=== PATIENT | female | born 1960 | race Caucasian/White ===

== ENCOUNTER 2019-09-19 20:06 | Inpatient (IN) | payer OTHER ==
[~2019-09-19] VITALS: Ht 170.2 cm; Wt 105.7 kg
[2019-09-19 20:26] VITALS: BP 140/79
--- NOTE | 2019-09-19 20:39 | NUR ---
PT TAKEN TO ER BED 05
--- NOTE | 2019-09-19 20:48 | NUR ---
58 Y/O F PRESENTS TO ER C/O BILATERAL CELLULITIS TO LOWER EXTREMITIES X 5 MONTHS. PAIN LEVEL 6/10, SOMETIMES SHARP, SOMETIMES DULL. PT HAS 1 SMALL ULCER ON BACK OF LEFT CALF AND SEVERAL OPEN WOUNDS ON RIGHT LOWER EXTREMITY. NO BLEEDING NOTED. PER PT SHE WAS NONCOMPLIANT WITH DIABETIC MEDICATION FOR 5 WEEKS. PER PT SHE WAS ON LANTUS AND WAS SWITCHED TO THE GENERIC VERSION AND WANTED TO GO BACK TO TAKING LANUTS. PT HAS BEEN COMPLIANT WITH MEDICATION FOR THE LAST MONTH. HOB ELEVATED, BED IN LOWEST POSITION, BED RAIL UP X1. WAITING FOR ERMD TO EVALUATE PT. ALLERGIES: PENICILLINS, SULFA MED HX: DM, HTN, HIGH CHOLESTEROL, HYPOTHRYOIDISM, SLEEP APNEA, DEPRESSION, AND MIGRAINES
--- NOTE | 2019-09-19 21:00 | NUR ---
PT LABS AND BLOOD CULTURES COLLECTED AND GIVEN TO PHLEB
--- NOTE | 2019-09-19 21:01 | NUR ---
DR. HONG EVALUATING PT AT BEDSIDE
--- NOTE | 2019-09-19 21:25 | NUR ---
PT AMBULATING TO RESTROOM TO PROVIDE URINE
[2019-09-19 21:36] LABS: BASOPHILS # (AUTO) 0.1 K/uL (0.00-0.22); BASOPHILS % (AUTO) 1.5 % (0.0-2.0); EOSINOPHILS # (AUTO) 0.2 K/uL (0-0.4); HEMATOCRIT 37.6 % (36-48); HEMOGLOBIN 12.4 g/dL (12.0-16.0); LYMPHOCYTES # (AUTO) 2.6 K/uL (2.5-16.5); LYMPHOCYTES % (AUTO) 32.5 % (20.5-51.1); MEAN CORPUSCULAR HEMOGLOBIN 30 pg (27-31); MEAN CORPUSCULAR HGB CONC 33 g/dL (33-37); MEAN CORPUSCULAR VOLUME 89.8 fL (80-94); MONOCYTES # (AUTO) 0.6 K/uL (0.8-1.0); MONOCYTES % (AUTO) 7.2 % (1.7-9.3); NEUTROPHILS # (AUTO) 4.5 K/uL (1.8-7.7); NEUTROPHILS % (AUTO) 56.8 % (42.2-75.2); PLATELET COUNT (AUTO) 310 K/uL (140-450); RED BLOOD CELL COUNT(AUTO) 4.19 MIL/uL (4.20-5.40); RED CELL DISTRIBUTION WIDTH 13.4 % (11.6-13.7)
[2019-09-19 21:49] LABS: ANION GAP 13.6 (8-16); CARBON DIOXIDE 26.1 mmol/L (21-32); CREATININE 1.1 mg/dL (0.6-1.3); POTASSIUM 3.7 mmol/L (3.5-5.1)
[2019-09-19 21:54] LABS: ALBUMIN 3.5 g/dL (3.4-5.0); TOTAL BILIRUBIN 0.2 mg/dL (0.0-1.0)
[2019-09-19] MEDS ORDERED: NACL 0.9% 1,000 ML IV ONE (22:10)
[2019-09-19] MEDS ORDERED: LEVOFLOXACIN 750 MG/D5W PREMIX 150 ML IV ONE (22:10)
--- NOTE | 2019-09-19 22:16 | NUR ---
EKG PERFORMED AT BEDSIDE
[2019-09-19] MEDS ORDERED: CLON0.3T23 PO (22:32)
[2019-09-19] MEDS ORDERED: GABA300C PO (22:32)
[2019-09-19] MEDS ORDERED: SPIR50TA PO (22:32)
[2019-09-19] MEDS ORDERED: ASPI-1718 PO (22:32)
[2019-09-19] MEDS ORDERED: PRAV40TA1 PO (22:32)
[2019-09-19] MEDS ORDERED: LOSA50TA57 PO (22:32)
[2019-09-19] MEDS ORDERED: FURO-570 PO (22:32)
[2019-09-19] MEDS ORDERED: INSU100S22 SUBQ (22:32)
[2019-09-19] MEDS ORDERED: SYN.05 PO (22:32)
[2019-09-19] MEDS ORDERED: TOPI50TA PO (22:32)
[2019-09-19] MEDS ORDERED: CITA10TA11 PO (22:32)
[2019-09-19 22:43] LABS: APPEARANCE,URINE HAZY (CLEAR); BILIRUBIN,URINE NEGATIVE (NEGATIVE); BLOOD, URINE NEGATIVE (NEGATIVE); COLOR,URINE YELLOW (YELLOW); LEUKOCYTE ESTERASE ,URINE TRACE (NEGATIVE); NITRITE, URINE NEGATIVE (NEGATIVE); UGLUCOSE 1+ (NEGATIVE)
[2019-09-19 23:05] LABS: RBC,URINE 0-5 /HPF (0-5)
--- NOTE | 2019-09-19 23:10 | NUR ---
Patient will be admitted to care of DR. BAILEY. Admited to TELE. Will go to room 120B. Belongings list completed. Report to EDUARDO NOLASCO.
--- NOTE | 2019-09-19 23:10 | NUR ---
ADMITTED A 58 YEAR OLD FEMALE FROM HOME. ALERT AND ORIENTED X3. NO APPARENT DISTRESS NOTED. WITH 22G LEFT HAND PIV INFUSING WITH IVF AND IV ATB. INTRODUCED SELF AND UPDATED BOARD. NO APPARENT DISTRESS NOTED. BED ON LOW POSITION. WILL CONTINUE TO MONITOR.
--- NOTE | 2019-09-19 23:10 | NUR ---
TRANSFER OF CARE AND REPORT GIVEN TO EDUARDO NOLASCO
[2019-09-20] MEDS ORDERED: DEXTROSE 50% 50 ML SYR IVP PRN
[2019-09-20] MEDS ORDERED: ACETAMINOPHEN 325 MG TAB PO PRN
--- NOTE | 2019-09-20 01:05 | NUR ---
ROUNDS DONE. PATIENT AWAKE IN BED, WATCHING TV. NO APPARENT DISTRESS NOTED. WILL CONTINUE TO MONITOR.
[2019-09-20] MEDS: NACL 0.45% 1,000 ML IV SCH ×2 (02:45→15:24)
[2019-09-20] MEDS: HYDROcodone/APAP 5/325 MG 1 TAB TAB PO PRN ×2 (02:51→20:41)
--- NOTE | 2019-09-20 02:52 | NUR ---
CALLED [facility] STAY STITCHER MD (DR. BUSH) AND GOT ORDER FOR NORCO. GIVEN TO PATIENT FOR COMPLAINT OF LEG PAIN 05/19. WILL CONTINUE TO MONITOR.
[2019-09-20 04:00] VITALS: BP 97/52
--- NOTE | 2019-09-20 04:50 | NUR ---
ROUNDS DONE. PATIENT ASLEEP IN BED. WILL CONTINUE TO MONITOR.
[2019-09-20] MEDS: BLOOD GLUCOSE MONITORING 1 DEV DEV FS SCH ×4 (05:49→21:00)
--- NOTE | 2019-09-20 06:35 | NUR ---
ROUNDS DONE. PATIENT ASLEEP IN BED. NO APPARENT DISTRESS NOTED. WILL CONTINUE TO MONITOR.
--- NOTE | 2019-09-20 06:40 | NUR ---
RECEIVED PT ON REESE V60 ON CPAP 7 FIO2 28, ALARMS ARE ON AND AUDIBLE, PT IS IN SEMI ASLEEP WEARING F\F MASK SIZE MED. GEL UNDER MASK, BS DIMINISHED, CONT POX IN PLACE, O2 2L ON AT WALL, BIPAP PLUGGED INTO RED OUTLET,
--- NOTE | 2019-09-20 07:20 | NUR ---
RECEIVED PT FROM NIGHT NURSE. PT ASLEEP IN BED, AROUSABLE TO SPEECH. AAOX4. RESPIRATIONS EVEN AND UNLABORED ON CPAP FOR SLEEP APNEA. IV IN PLACE L HAND 22G PATENT AND ASYMPTOMATIC INFUSING PER ORDER. PT DENIES PAIN AND NO DISTRESS NOTED. CELLULITIS PRESENT ON BOTH LOWER EXTREMITIES. BED IN LOW POSITION. SAFETY MEASURES IN PLACE. CALL LIGHT WITHIN REACH. WILL CONTINUE TO MONITOR.
--- NOTE | 2019-09-20 07:30 | NUR ---
ENDORSED TO AM SHIFT NURSE IN STABLE CONDITION.
[2019-09-20 08:00] VITALS: BP 104/60
--- NOTE | 2019-09-20 08:30 | NUR ---
PATIENT HAS BEEN SCREENED AND CATEGORIZED MODERATE NUTRITION RISK. PATIENT WILL BE SEEN WITHIN 3-5 DAYS OF ADMISSION. 09/22/19 09/24/[address]
--- NOTE | 2019-09-20 09:34 | NUR ---
PTS CALLED, CALL TRANSFERED TO PT. DENIES PAIN AT THIS TIME. NO DISTRESS NOTED. WILL CONTINUE TO MONITOR.
[2019-09-20] MEDS ORDERED: VANCOMYCIN PER PHARMACY MC PRN (11:30)
--- NOTE | 2019-09-20 11:38 | NUR ---
BLOOD GLUCOSE MONITORED AT THIS TIME. PT DENIES PAIN. NO DISTRESS NOTED. BED IN LOW POSITION. CALL LIGHT WITHIN REACH. WILL CONTINUE TO MONITOR.
[2019-09-20 12:00] VITALS: BP 100/56
[2019-09-20] MEDS: MORPHINE SULFATE 2 MG/ML SYR IVP PRN ×2 (12:09→20:32)
[2019-09-20] MEDS: INSULIN LISPRO SLIDING SCALE 100 UNITS/ML VIAL SUBQ PRN ×2 (12:22→16:52)
[2019-09-20] MEDS ORDERED: VANCOMYCIN 1,000 MG in DEXTROSE 5% 250 ML IV SCH (13:00)
[2019-09-20] MEDS: diphenhydrAMINE 50 MG/ML VIAL IVP PRN ×2 (14:05→20:32)
[2019-09-20] MEDS: methylPREDNISolone SS 125 MG/2 ML VIAL IVP SCH ×2 (14:06→20:40)
--- NOTE | 2019-09-20 14:11 | NUR ---
MEDICATIONS ADMINISTERED PER ORDER. PT TOLERATED WELL. NO DISTRESS NOTED. WILL CONTINUE TO MONITOR.
--- NOTE | 2019-09-20 14:16 | NUR ---
[employer] Regrooving Machine Operator Note: Basic Screen: Yes High Risk DC Screen [facility]: SWATI Steve Relationship: FRIEND Pre-Admission Living Arrangements: Lives with Other Prior ADL Independent Current Home Health Name/Tel: N/A Current DME/02 Name/Tel: N/A Current Hospice Name/Tel: N/A Current Dialysis Name/Tel: N/A Healthcare Decision Maker: Patient Advance Directive Yes - REFUSED Physician Orders for Life Sustaining Treatment Form No Patient/Family Have Educational Needs No Information Taught: Advance Directive Person Taught: Patient Teaching Tools: Verbal Factors Affecting Learning: None Participation Level: Active Evaluation: Verbalizes Understanding Needs Additional Education: No Discipline: Case Mgt/Social Svcs Tentative Discharge Plan/Destination: No Needs Identified Will require assistance post discharge: No Referred to Stone Crusher Operator: No Tentative Discharge Plan Summary: Patient is a 58 year old female admitted for cellulitis. Patient has medical hx of diabetes, hypertension, and thyroid disease. Patient was admitted from home. SW verified demographics with patient. Patient stated that her PCP is Dr. Dayo Wakefield and she was last seen one week ago. Patient denied mental health history and substance abuse history. Patient's tentative plan after discharge is to return home. SW offered education on advanced directive and patient refused. No further needs identified. Signature: SARI Mclain Date: Sep 20, 2019 Time: 14:15
[2019-09-20 16:00] VITALS: BP 97/43
--- NOTE | 2019-09-20 17:02 | NUR ---
MEDICATIONS ADMINISTERED PER ORDER. PT TOLERATED WELL. DENIES PAIN AT THIS TIME. NO DISTRESS NOTED. SAFETY MEASURES IN PLACE. WILL CONTINUE TO MONITOR.
--- NOTE | 2019-09-20 19:05 | NUR ---
PT ENDORSED TO NIGHT NURSE FOR CONTINUITY OF CARE.
--- NOTE | 2019-09-20 19:06 | NUR ---
RECEIVED PT FROM AM SHIFT NURSE, GINETTE PT ASLEEP IN BED, AAOX4, AMBULATORY. RESPIRATIONS EVEN AND UNLABORED ON CPAP FOR SLEEP APNEA. IV IN PLACE L HAND 22G PATENT, INFUSING WELL PER ORDER. PT SAID HAS TOLERABLE PAIN ON BILATERAL LE. NO RESPIRATORY DISTRESS NOTED. CELLULITIS PRESENT ON BOTH LOWER EXTREMITIES. BED IN LOW POSITION. SAFETY MEASURES IN PLACE. CALL LIGHT WITHIN REACH. WILL CONTINUE TO MONITOR.
[2019-09-20 20:00] VITALS: BP 97/43
--- NOTE | 2019-09-20 20:41 | NUR ---
PT C/O OF PAIN 6/10 ON BILATERAL LE DUE TO CELLULITIS, MEDICATED. WILL REASSESS LATER
[2019-09-20] MEDS ORDERED: LEVOFLOXACIN 500 MG/D5W PREMIX 100 ML IV SCH (21:00)
--- NOTE | 2019-09-20 21:00 | NUR ---
PT REFUSED BLOOD GLUCOSE CHECK, WANTS TO GO HOME. WILL CALL DR. BAILEY./ DEFENSIVE DRIVING INSTRUCTOR DR. LAURENT
--- NOTE | 2019-09-20 21:41 | NUR ---
PATIENT RESTING IN BED. DOES NOT WANT TO BE PLACED ON CPAP AT THIS TIME. NO DISTRESS NOTED. WILL CONTINUE TO MONITOR.
--- NOTE | 2019-09-20 21:51 | NUR ---
DR. LAURENT SOFTWARE QA SYSTEM SPECIALIST FOR DR. BAILEY AWARE THAT PT WANTS TO GO AMA
--- NOTE | 2019-09-20 21:52 | NUR ---
PT' SIGNED AMA FORM FOR [facility] AGAINST MEDICAL ADVICE AND [facility] WITHOUT BEING SEEN BY A PHYSICIAN
--- NOTE | 2019-09-20 22:15 | NUR ---
INFORMED PATIENT ON THE RISKS AND BENEFOTS OF AMA, AND THAT IV ANTIBIOTICS ARE NEEDED AT THIS TIME FOR BILBETTYLA LE PER DR. DALAL. PT VERBALIZED UNDERSTANDING. PT SAID SHE HAS CREAM AT HOME. INFORMED HER THAT CREAM IS NOT SUFFICIENT.
--- NOTE | 2019-09-20 22:18 | NUR ---
INFORMED SECURITY AND DYE RANGE FEEDER WARREN TAPIA
--- NOTE | 2019-09-20 22:19 | NUR ---
INFORMED RESPIRATORY THERAPIST EVARISTO THAT BIPAP MACHINE STILL AT THE PT'S ROOM, PT WENT AMA
--- NOTE | 2019-09-20 22:20 | NUR ---
PT WENT AMA, WAS PICKED UP BY PERSONNEL BELONGINGS WAS TAKEN WITH PATIENT MICHAEL. PHONE AND PHOTOGRAMMETRY AIRPLANE PILOT. PT ESCORTED TO EXIT.
== END 2019-09-20 22:20 | disposition left against medical advice (07) | DRG 383 ==
LOC: MED 20:06 → MTU 22:40
PROVIDERS: ADMIT Internal Medicine Pulmonary Disease; ATTEND Internal Medicine Pulmonary Disease
DX: L03.116 Cellulitis of left lower limb (principal); E11.9 Type 2 diabetes mellitus without complications; E66.9 Obesity, unspecified; L30.9 Dermatitis, unspecified; I10 Essential (primary) hypertension; F32.9 Major depressive disorder, single episode, unspecified; E78.5 Hyperlipidemia, unspecified; G43.909 Migraine, unspecified, not intractable, without status migrainosus; L03.115 Cellulitis of right lower limb; Z53.29 Procedure and treatment not carried out because of patient's decision for other reasons; Z68.36 Body mass index [BMI] 36.0-36.9, adult; Z88.4 Allergy status to anesthetic agent; Z88.1 Allergy status to other antibiotic agents; Z88.0 Allergy status to penicillin; Z88.2 Allergy status to sulfonamides; Z88.8 Allergy status to other drugs, medicaments and biological substances; Z79.899 Other long term (current) drug therapy; Z91.09 Other allergy status, other than to drugs and biological substances
CPT/HCPCS: 36415; 80053; 81001; 82948; 83605; 85025; 87040; 87081; 87086; 93005; 94660; 96361; 96365; 99285; J1200; J1956; J2270; J2930; J3370; J7060

== ENCOUNTER 2019-11-07 19:00 | Emergency (ER) | payer OTHER ==
[~2019-11-07] VITALS: Ht 170.2 cm; Wt 99.8 kg
[~2019-11-07 19:00] MED LIST: ASPI-1718 PO; CITA10TA11 PO; CLON0.3T23 PO; FURO-570 PO; GABA300C PO; INSU100S22 SUBQ; LOSA50TA57 PO; PRAV40TA1 PO; SPIR50TA PO; SYN.05 PO; TOPI50TA PO
[2019-11-07 19:20] VITALS: BP 138/77
--- NOTE | 2019-11-07 19:22 | NUR ---
PT TAKEN BACK TO LOBBY
--- NOTE | 2019-11-07 22:04 | NUR ---
PT TAKEN TO BED 7
--- NOTE | 2019-11-07 22:10 | NUR ---
58 Y/O FEMALE C/O BILATERAL LOWER EXTREMITY CELLULITIS X 8 MONTHS. PT STATES SHE HAS BEEN TREATED IN THE PAST BUT IT HAS BEEN PROGRESSIVELY GETTING WORSE. 10/10 ACHING/BURNING PAIN TO RT AND LT LEGS. PT STATES LOW GRADE FEVER X 2 DAYS. PT ABLE TO AMBULATE, BILATERAL EXTREMITIES REDDEND AND WARM TO THE TOUCH. +CMS. PT SITTING ON BED POSITIONED FOR COMFORT. RR EVEN AND UNLABORED. PT CALM AND PLEASANT. VSS MEDHXl DM, HTN, HYPOTHYROIDISM, HLD
--- NOTE | 2019-11-07 22:42 | NUR ---
Dr. Bourgeois examining patient.
[2019-11-07] MEDS ORDERED: KETOROLAC 60 MG/2 ML VIAL IM ONE (22:55)
--- NOTE | 2019-11-07 22:55 | NUR ---
PT RESTING IN BED WITH EYES CLOSED, VISIBLE RISE AND FALL OF THE CHEST. RR EVEN AND UNLABORED. POSITIONED FOR COMFORT. VSS. WILL CONTINUE TO MONITOR.
[2019-11-07 23:03] VITALS: BP 133/79
--- NOTE | 2019-11-07 23:03 | NUR ---
PT DISCHARGED WITH PAPERWORK. EDUCATED PT REGARDING MEDICATIONS AND D/C INSTRUCTIONS. PT VERBALIZED UNDERSTANDING OF TEACHING. TOLD PT TO FOLLOW UP WITH PCP AND WHEN TO RETURN TO ED. PT AT STABLE CONDITION. ALL QUESTIONS ANSWERED.
== END 2019-11-07 23:03 | disposition home or self-care (01) ==
LOC: MED 19:00
DX: L03.116 Cellulitis of left lower limb (principal); L03.115 Cellulitis of right lower limb; E11.9 Type 2 diabetes mellitus without complications; I10 Essential (primary) hypertension; E07.9 Disorder of thyroid, unspecified; Z79.899 Other long term (current) drug therapy; Z79.84 Long term (current) use of oral hypoglycemic drugs; Z88.0 Allergy status to penicillin; Z88.2 Allergy status to sulfonamides; Z88.8 Allergy status to other drugs, medicaments and biological substances
CPT/HCPCS: 96372; 99283; J1885